=== PATIENT | male | born 1990 | race Caucasian/White ===

== ENCOUNTER 2018-07-31 07:42 | Emergency (ER) | payer SELFPAY ==
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
[2018-07-31] MEDS ORDERED: KETOROLAC 30 MG/1 ML SDV IVP ONE (07:57)
[2018-07-31] MEDS ORDERED: ONDANSETRON 4 MG/2 ML VIAL IVP ONE (07:57)
[2018-07-31] MEDS ORDERED: NS 1,000 ML IV ONE (07:57)
[2018-07-31] MEDS ORDERED: HYDROmorphONE/DILAUDID 2 MG/ML INJ IVP ONE ×2 (08:09→08:44)
[2018-07-31] MEDS ORDERED: TAMSULOSIN HCL 0.4 MG CAP PO ONE (10:54)
[2018-07-31] MEDS ORDERED: KETOROLAC 15 MG/1 ML SDV IVP ONE (10:54)
[2018-07-31 12:16] VITALS: BP 122/75
== END 2018-07-31 12:16 | disposition home or self-care (01) ==
DX: N20.0 Calculus of kidney (principal); E86.9 Volume depletion, unspecified; F17.200 Nicotine dependence, unspecified, uncomplicated
CPT/HCPCS: 96374; J1170; J1885; J2405